=== PATIENT | male | born 1980 | race African-American/Black ===

== ENCOUNTER 2018-04-21 10:00 | Inpatient (IN) | payer MEDICAID ==
[~2018-04-21] VITALS: Ht 177.8 cm; Wt 114.3 kg
[2018-04-21] MEDS ORDERED: HALOPERIDOL 5 MG TABLET PO ONE (11:45)
[2018-04-21] MEDS ORDERED: LORazepam 2 MG TABLET PO ONE (11:45)
[2018-04-21 11:51] LABS: BASOPHILS % (AUTO) 0.9 % (0.0-2.0); EOSINOPHILS % (AUTO) 0.7 % (1.0-6.0); HEMATOCRIT 46.9 % (41-53); HEMOGLOBIN 16.3 g/dL (13.5-17.5); LYMPHOCYTES # (AUTO) 1.8 K/uL (1.0-4.8); LYMPHOCYTES % (AUTO) 15.3 % (22.0-44.0); MEAN CORPUSCULAR HEMOGLOBIN 30.2 pg (26.0-34.0); MEAN CORPUSCULAR HGB CONC 34.8 G/dL (31.0-37.0); MEAN CORPUSCULAR VOLUME 87 fL (80-100); MONOCYTES % (AUTO) 8.4 % (2.0-9.0); NEUTROPHILS # (AUTO) 8.7 K/uL (1.8-7.7); NEUTROPHILS % (AUTO) 74.7 % (40.0-70.0); PLATELET COUNT (AUTO) 520 K/uL (150-450); RED CELL DISTRIBUTION WIDTH 14.3 % (11.5-14.5)
[2018-04-21] MEDS ORDERED: HALOPERIDOL 5 MG TABLET PO PRN (12:00)
[2018-04-21 12:08] LABS: ANION GAP 13 mmol/L (8-16); CALCIUM, TOTAL 9.7 mg/dL (8.8-10.5); CARBON DIOXIDE 27 mmol/L (22-29); CHLORIDE 99 mmol/L (98-107); GLOMERULAR FILTR. RATE CALC > 60 mL/min (>60); GLUCOSE,RANDOM 123 mg/dL (70-110); POTASSIUM 3.9 mmol/L (3.5-5.1); SODIUM SERUM 139 mmol/L (136-145); UREA NITROGEN, BLOOD 6 mg/dL (7-18)
[2018-04-21 12:12] LABS: ALANINE AMINOTRANSFERASE 70 U/L (12-78); ALBUMIN 4.8 g/dL (3.4-5.0); ALKALINE PHOSPHATASE 104 U/L (46-116); ASPARTATE AMINOTRANSFERASE 75 U/L (15-37); BILIRUBIN,TOTAL 0.7 mg/dL (0.1-1.0); TOTAL PROTEIN, SERUM 8.6 g/dL (6.4-8.2)
[2018-04-21 13:33] LABS: AMPHET/METH SCREEN,URINE NEGATIVE (NEGATIVE); BARBITURATE SCREEN, URINE NEGATIVE (NEGATIVE); BENZODIAZEPINES SCREEN,URINE NEGATIVE (NEGATIVE); CANNABINOID SCREEN,URINE POSITIVE (NEGATIVE); COCAINE SCREEN,URINE NEGATIVE (NEGATIVE); METHADONE SCREEN, URINE NEGATIVE (NEGATIVE); OPIATE SCREEN,URINE NEGATIVE (NEGATIVE)
[2018-04-21 13:40] LABS: PHENCYCLIDINE SCREEN,URINE NEGATIVE (NEGATIVE)
[2018-04-21 16:18] VITALS: BP 114/71
[2018-04-21] MEDS ORDERED: ACETAMINOPHEN 325 MG TABLET PO PRN (16:30)
[2018-04-21] MEDS ORDERED: CloNIDine HCL 0.1 MG TABLET PO PRN (16:30)
[2018-04-21] MEDS ORDERED: ALBUTEROL SULFATE HFA 90 MCG/PUFF 8 GM INHALER IH PRN (16:30)
[2018-04-21] MEDS ORDERED: PETROLATUM,WHITE 71 GM JELLY TP PRN (16:30)
[2018-04-21] MEDS ORDERED: GuaiFENesin/D-METHORPHAN [SUGAR-FREE] 200-20MG/10 ML SYRUP UDCUP PO PRN (16:30)
[2018-04-21] MEDS ORDERED: NICOTINE 14 MG/24 HOUR PATCH TD PRN (16:30)
[2018-04-21] MEDS ORDERED: MAGNESIUM HYDROXIDE SUSPENSION 30 ML UDCUP PO PRN (16:30)
[2018-04-21] MEDS ORDERED: MAG HYDROX/AL HYDROX/SIMETH ES 30 ML SUSPENSION UDCUP PO PRN (16:30)
[2018-04-21] MEDS ORDERED: DOCUSATE SODIUM 100 MG CAPSULE PO PRN (16:30)
[2018-04-21] MEDS ORDERED: LOPERAMIDE HCL 2 MG CAPSULE PO PRN (16:30)
[2018-04-21] MEDS ORDERED: ONDANSETRON HCL 4 MG TABLET PO PRN (16:30)
[2018-04-21] MEDS ORDERED: HALOPERIDOL LACTATE 5 MG/ML VIAL IM ONE (21:00)
[2018-04-21] MEDS ORDERED: LORazepam 2 MG/ML VIAL IM ONE (21:00)
[2018-04-21] MEDS ORDERED: DiphenhydrAMINE HCL 50 MG/ML VIAL IM ONE (21:00)
[2018-04-22 04:09] VITALS: BP 132/67
[2018-04-22 08:47] LABS: BASOPHILS % (AUTO) 0.6 % (0.0-2.0); EOSINOPHILS % (AUTO) 5.3 % (1.0-6.0); HEMATOCRIT 45.3 % (41-53); HEMOGLOBIN 15.6 g/dL (13.5-17.5); LYMPHOCYTES # (AUTO) 2.2 K/uL (1.0-4.8); LYMPHOCYTES % (AUTO) 28.3 % (22.0-44.0); MEAN CORPUSCULAR HEMOGLOBIN 29.8 pg (26.0-34.0); MEAN CORPUSCULAR HGB CONC 34.3 G/dL (31.0-37.0); MEAN CORPUSCULAR VOLUME 87 fL (80-100); MONOCYTES # (AUTO) 0.8 K/uL (0.1-1.0); MONOCYTES % (AUTO) 9.9 % (2.0-9.0); NEUTROPHILS # (AUTO) 4.4 K/uL (1.8-7.7); NEUTROPHILS % (AUTO) 55.9 % (40.0-70.0); PLATELET COUNT (AUTO) 431 K/uL (150-450); RED BLOOD CELL COUNT(AUTO) 5.23 MIL/uL (4.50-5.90); RED CELL DISTRIBUTION WIDTH 14.6 % (11.5-14.5)
[2018-04-22 09:04] LABS: HEMOGLOBIN A1C 5.7 % (4.5-6.2)
[2018-04-22 09:12] VITALS: BP 103/67
[2018-04-22 09:32] LABS: ALANINE AMINOTRANSFERASE 70 U/L (12-78); ALBUMIN 4.4 g/dL (3.4-5.0); ALKALINE PHOSPHATASE 96 U/L (46-116); ANION GAP 6 mmol/L (8-16); ASPARTATE AMINOTRANSFERASE 58 U/L (15-37); BILIRUBIN,TOTAL 0.6 mg/dL (0.1-1.0); CALCIUM, TOTAL 9.1 mg/dL (8.8-10.5); CARBON DIOXIDE 31 mmol/L (22-29); CHLORIDE 101 mmol/L (98-107); CHOL/HDL RATIO 6.1 (4.2-7.3); CHOLESTEROL 146 mg/dL (131-200); CREATININE 1.17 mg/dL (0.60-1.30); GLOMERULAR FILTR. RATE CALC > 60 mL/min (>60); GLUCOSE,RANDOM 97 mg/dL (70-110); HDL CHOLESTEROL 24 mg/dL (40-60); LDL CHOL (CALC.) 107 mg/dL (0-130); POTASSIUM 4.8 mmol/L (3.5-5.1); SODIUM SERUM 138 mmol/L (136-145); TOTAL PROTEIN, SERUM 7.5 g/dL (6.4-8.2); TRIGLYCERIDES 75 mg/dL (15-150); UREA NITROGEN, BLOOD 9 mg/dL (7-18)
[2018-04-22] MEDS: RisperiDONE 1 MG TABLET PO SCH ×2 (10:45→20:47)
[2018-04-22 17:24] VITALS: BP 113/60
[2018-04-22] MEDS: IBUPROFEN 400 MG TABLET PO PRN (20:48)
[2018-04-23 04:08] VITALS: BP 116/72
[2018-04-23] MEDS: IBUPROFEN 400 MG TABLET PO PRN ×2 (07:08→17:57)
[2018-04-23 08:16] VITALS: BP 112/68
[2018-04-23] MEDS: RisperiDONE 1 MG TABLET PO SCH ×2 (08:53→20:08)
[2018-04-23 17:06] VITALS: BP 124/67
[2018-04-24 06:17] VITALS: BP 101/61
[2018-04-24] MEDS: RisperiDONE 1 MG TABLET PO SCH ×2 (08:07→21:07)
[2018-04-24 08:16] VITALS: BP 124/69
[2018-04-24 16:00] VITALS: BP 134/68
[2018-04-24] MEDS: LORazepam 2 MG TABLET PO PRN (16:17)
[2018-04-24] MEDS: ZOLPIDEM TARTRATE 10 MG TABLET PO PRN (21:20)
[2018-04-25 05:24] VITALS: BP 125/76
[2018-04-25 08:24] VITALS: BP 130/80
[2018-04-25] MEDS: RisperiDONE 1 MG TABLET PO SCH ×2 (08:41→20:18)
[2018-04-25 16:00] VITALS: BP 138/85
[2018-04-25] MEDS: LORazepam 2 MG TABLET PO PRN (16:32)
[2018-04-26 06:34] VITALS: BP 128/83
[2018-04-26 08:17] VITALS: BP 126/82
[2018-04-26] MEDS: RisperiDONE 1 MG TABLET PO SCH ×2 (08:39→20:42)
[2018-04-26] MEDS: LORazepam 2 MG TABLET PO PRN ×2 (08:39→16:26)
[2018-04-26 16:00] VITALS: BP 119/70
[2018-04-26] MEDS: ZOLPIDEM TARTRATE 10 MG TABLET PO PRN (20:42)
[2018-04-27 00:13] VITALS: BP 120/76
[2018-04-27 08:17] VITALS: BP 116/65
[2018-04-27] MEDS: RisperiDONE 1 MG TABLET PO SCH ×2 (09:00→20:47)
[2018-04-27 16:00] VITALS: BP 131/74
[2018-04-27] MEDS: LORazepam 2 MG TABLET PO PRN (16:43)
[2018-04-27] MEDS: ZOLPIDEM TARTRATE 10 MG TABLET PO PRN (20:47)
[2018-04-28 03:14] VITALS: BP 124/80
[2018-04-28 08:10] VITALS: BP 120/79
[2018-04-28] MEDS: RisperiDONE 1 MG TABLET PO SCH ×2 (09:44→20:30)
[2018-04-28 16:00] VITALS: BP 127/87
[2018-04-28] MEDS: LORazepam 2 MG TABLET PO PRN (16:16)
[2018-04-28] MEDS: ZOLPIDEM TARTRATE 10 MG TABLET PO PRN (20:45)
[2018-04-29 03:50] VITALS: BP 123/82
[2018-04-29] MEDS: LORazepam 2 MG TABLET PO PRN (03:52)
[2018-04-29 08:13] VITALS: BP 131/65
[2018-04-29] MEDS: RisperiDONE 1 MG TABLET PO SCH ×2 (08:39→20:48)
[2018-04-29 16:03] VITALS: BP 130/69
[2018-04-29] MEDS: ZOLPIDEM TARTRATE 10 MG TABLET PO PRN (20:48)
[2018-04-30 00:27] VITALS: BP 141/85
[2018-04-30] MEDS: IBUPROFEN 400 MG TABLET PO PRN ×2 (00:56→20:34)
[2018-04-30] MEDS: LORazepam 2 MG TABLET PO PRN ×2 (00:57→17:30)
[2018-04-30] MEDS: RisperiDONE 1 MG TABLET PO SCH ×2 (08:42→20:34)
[2018-04-30 08:55] VITALS: BP 133/61
[2018-04-30 16:45] VITALS: BP 139/78
[2018-04-30 20:34] VITALS: BP 132/76
[2018-04-30] MEDS: ZOLPIDEM TARTRATE 10 MG TABLET PO PRN (20:38)
[2018-05-01 05:22] VITALS: BP 129/71
[2018-05-01] MEDS: RisperiDONE 1 MG TABLET PO SCH (08:19)
[2018-05-01] MEDS ORDERED: RISP1 PO (08:31)
[2018-05-01 08:47] VITALS: BP 122/73
[2018-05-01] MEDS: IBUPROFEN 400 MG TABLET PO PRN (12:18)
== END 2018-05-01 13:35 | disposition home or self-care (01) | DRG 750 ==
LOC: EMS 10:01 → B3A 12:31 → B2S 04-30 09:36
PROVIDERS: ADMIT Psychiatry & Neurology Psychiatry; ATTEND Psychiatry & Neurology Psychiatry
DX: F20.0 Paranoid schizophrenia (principal); F15.20 Other stimulant dependence, uncomplicated; D72.829 Elevated white blood cell count, unspecified; F17.210 Nicotine dependence, cigarettes, uncomplicated; F41.9 Anxiety disorder, unspecified; F12.90 Cannabis use, unspecified, uncomplicated; Z91.5 Personal history of self-harm
CPT/HCPCS: 80074; 83036; 84443; G0480; J1200; J1630; J2060

== ENCOUNTER 2018-10-04 13:52 | Inpatient (IN) | payer MEDICAID ==
[~2018-10-04] VITALS: Ht 172.7 cm; Wt 113.1 kg
[2018-10-04 13:50] VITALS: BP 124/70
[~2018-10-04 13:52] MED LIST: RISP1 PO
[2018-10-04] MEDS ORDERED: ZOLPIDEM TARTRATE 10 MG TABLET PO PRN (14:30)
[2018-10-04 16:08] LABS: ANION GAP 7 mmol/L (8-16); CALCIUM, TOTAL 9.1 mg/dL (8.8-10.5); CARBON DIOXIDE 28 mmol/L (22-29); CHLORIDE 101 mmol/L (98-107); CREATININE 1.28 mg/dL (0.60-1.30); GLOMERULAR FILTR. RATE CALC > 60 mL/min (>60); GLUCOSE,RANDOM 104 mg/dL (70-110); POTASSIUM 4.1 mmol/L (3.5-5.1); SODIUM SERUM 136 mmol/L (136-145); UREA NITROGEN, BLOOD 13 mg/dL (7-18)
[2018-10-04 16:11] LABS: BASOPHILS % (AUTO) 0.5 % (0.0-2.0); EOSINOPHILS % (AUTO) 2.3 % (1.0-6.0); HEMATOCRIT 47.7 % (41-53); HEMOGLOBIN 15.9 g/dL (13.5-17.5); LYMPHOCYTES # (AUTO) 1.3 K/uL (1.0-4.8); LYMPHOCYTES % (AUTO) 17.1 % (22.0-44.0); MEAN CORPUSCULAR HEMOGLOBIN 28.8 pg (26.0-34.0); MEAN CORPUSCULAR HGB CONC 33.3 G/dL (31.0-37.0); MEAN CORPUSCULAR VOLUME 87 fL (80-100); MONOCYTES # (AUTO) 0.7 K/uL (0.1-1.0); MONOCYTES % (AUTO) 8.6 % (2.0-9.0); NEUTROPHILS # (AUTO) 5.6 K/uL (1.8-7.7); NEUTROPHILS % (AUTO) 71.5 % (40.0-70.0); PLATELET COUNT (AUTO) 363 K/uL (150-450); RED BLOOD CELL COUNT(AUTO) 5.52 MIL/uL (4.50-5.90); RED CELL DISTRIBUTION WIDTH 14.8 % (11.5-14.5)
[2018-10-04] MEDS ORDERED: DiphenhydrAMINE HCL 50 MG/ML VIAL IM ONE (16:15)
[2018-10-04] MEDS ORDERED: LORazepam 2 MG/ML VIAL IM ONE (16:15)
[2018-10-04 16:23] LABS: ALANINE AMINOTRANSFERASE 37 U/L (12-78); ALBUMIN 3.9 g/dL (3.4-5.0); ALKALINE PHOSPHATASE 100 U/L (46-116); ASPARTATE AMINOTRANSFERASE 15 U/L (15-37); BILIRUBIN,TOTAL 0.3 mg/dL (0.1-1.0); FREE T4 (FREE THYROXINE) 1.41 ng/dL (0.76-1.46); THYROID STIMULATING HORMONE 1.68 uIU/mL (0.36-3.74); TOTAL PROTEIN, SERUM 7.2 g/dL (6.4-8.2)
[2018-10-04 18:12] LABS: APPEARANCE,URINE CLEAR (CLEAR); BILIRUBIN,URINE NEGATIVE (NEGATIVE); GLUCOSE, URINE (UA) NEGATIVE (NEGATIVE); KETONES,URINE 40 mg/dL (NEGATIVE); LEUKOCYTE ESTERASE ,URINE NEGATIVE (NEGATIVE); NITRATE,URINE NEGATIVE (NEGATIVE); OCCULT BLOOD,URINE NEGATIVE (NEGATIVE); PROTEIN,URINE NEGATIVE (NEGATIVE); UROBILINOGEN,URINE 0.2 mg/dL (<=1.0)
[2018-10-04 18:20] LABS: AMPHET/METH SCREEN,URINE NEGATIVE (NEGATIVE); BARBITURATE SCREEN, URINE NEGATIVE (NEGATIVE); BENZODIAZEPINES SCREEN,URINE NEGATIVE (NEGATIVE); CANNABINOID SCREEN,URINE NEGATIVE (NEGATIVE); COCAINE SCREEN,URINE NEGATIVE (NEGATIVE); METHADONE SCREEN, URINE NEGATIVE (NEGATIVE); OPIATE SCREEN,URINE NEGATIVE (NEGATIVE)
[2018-10-04 18:21] LABS: PHENCYCLIDINE SCREEN,URINE NEGATIVE (NEGATIVE)
[2018-10-04 21:30] VITALS: BP 120/64
[2018-10-04] MEDS ORDERED: IBUPROFEN 400 MG TABLET PO PRN (22:00)
[2018-10-04] MEDS ORDERED: MAGNESIUM HYDROXIDE SUSPENSION 30 ML UDCUP PO PRN (22:00)
[2018-10-04] MEDS ORDERED: ALBUTEROL SULFATE HFA 90 MCG/PUFF 8 GM INHALER IH PRN (22:00)
[2018-10-04] MEDS ORDERED: MAG HYDROX/AL HYDROX/SIMETH ES 30 ML SUSPENSION UDCUP PO PRN (22:00)
[2018-10-04] MEDS ORDERED: NICOTINE 14 MG/24 HOUR PATCH TD PRN (22:00)
[2018-10-04] MEDS ORDERED: GuaiFENesin/D-METHORPHAN [SUGAR-FREE] 200-20MG/10 ML SYRUP UDCUP PO PRN (22:00)
[2018-10-04] MEDS ORDERED: ONDANSETRON HCL 4 MG TABLET PO PRN (22:00)
[2018-10-04] MEDS ORDERED: CloNIDine HCL 0.1 MG TABLET PO PRN (22:00)
[2018-10-04] MEDS ORDERED: ACETAMINOPHEN 325 MG TABLET PO PRN (22:00)
[2018-10-04] MEDS ORDERED: LOPERAMIDE HCL 2 MG CAPSULE PO PRN (22:00)
[2018-10-04] MEDS ORDERED: DOCUSATE SODIUM 100 MG CAPSULE PO PRN (22:00)
[2018-10-05 08:01] VITALS: BP 137/67
[2018-10-05 16:10] VITALS: BP 130/71
[2018-10-05] MEDS: ARIPiprazole 5 MG TABLET PO SCH (17:42)
[2018-10-05] MEDS: HALOPERIDOL 5 MG TABLET PO PRN (17:42)
[2018-10-05] MEDS: LORazepam 2 MG TABLET PO PRN (17:42)
[2018-10-06 06:17] VITALS: BP 143/71
[2018-10-06] MEDS: ARIPiprazole 5 MG TABLET PO SCH (08:34)
[2018-10-06 08:37] VITALS: BP 112/65
[2018-10-06 16:00] VITALS: BP 118/70
[2018-10-06] MEDS: HALOPERIDOL 5 MG TABLET PO PRN (17:39)
[2018-10-06] MEDS: LORazepam 2 MG TABLET PO PRN (17:39)
[2018-10-07 06:55] VITALS: BP 125/82
[2018-10-07 08:08] VITALS: BP 123/61
[2018-10-07] MEDS: ARIPiprazole 5 MG TABLET PO SCH (09:00)
[2018-10-07] MEDS ORDERED: ARIP5TAB8 PO (13:15)
== END 2018-10-07 13:10 | disposition home or self-care (01) | DRG 750 ==
LOC: EDSTATUS 13:52 → EMS 14:39 → B3A 21:17
DX: F20.1 Disorganized schizophrenia (principal); Z59.0 Homelessness; F19.10 Other psychoactive substance abuse, uncomplicated; Z91.19 Patient's noncompliance with other medical treatment and regimen; G44.209 Tension-type headache, unspecified, not intractable; Z79.899 Other long term (current) drug therapy
CPT/HCPCS: 84439; 84443; 96372; G0480; J1200; J2060

== ENCOUNTER 2021-06-30 11:07 | Inpatient (IN) | payer MEDICAID ==
[~2021-06-30] VITALS: Ht 170.2 cm; Wt 107.1 kg
[~2021-06-30 11:07] MED LIST changes: +ARIP5TAB37 PO; -RISP1 PO
[2021-06-30] MEDS ORDERED: GuaiFENesin/D-METHORPHAN [SUGAR-FREE] 200-20MG/10 ML SYRUP UDCUP PO PRN (13:45)
[2021-06-30] MEDS ORDERED: LOPERAMIDE HCL 2 MG CAPSULE PO PRN (13:45)
[2021-06-30] MEDS ORDERED: TUBERCULIN, PURIFIED PROTEIN DERIVATIVE 5 TU/0.1 ML SYRINGE ID ONE (13:45)
[2021-06-30] MEDS ORDERED: OLANZapine 5 MG RAPDIS TABLET PO PRN (13:45)
[2021-06-30] MEDS ORDERED: HydrOXYzine PAMOATE 50 MG CAPSULE PO PRN (13:45)
[2021-06-30] MEDS ORDERED: LORazepam 2 MG TABLET PO PRN (13:45)
[2021-06-30 16:05] LABS: AMPHET/METH SCREEN,URINE NEGATIVE (NEGATIVE); BARBITURATE SCREEN, URINE NEGATIVE (NEGATIVE); BENZODIAZEPINES SCREEN,URINE NEGATIVE (NEGATIVE); CANNABINOID SCREEN,URINE NEGATIVE (NEGATIVE); COCAINE SCREEN,URINE NEGATIVE (NEGATIVE); METHADONE SCREEN, URINE NEGATIVE (NEGATIVE); OPIATE SCREEN,URINE NEGATIVE (NEGATIVE)
[2021-06-30 16:06] LABS: PHENCYCLIDINE SCREEN,URINE NEGATIVE (NEGATIVE)
[2021-06-30 16:06] LABS: BASOPHILS % (AUTO) 0.7 % (0.0-2.0); EOSINOPHILS % (AUTO) 0.5 % (1.0-6.0); HEMATOCRIT 47.1 % (41-53); HEMOGLOBIN 16.2 g/dL (13.5-17.5); LYMPHOCYTES # (AUTO) 1.6 K/uL (1.0-4.8); LYMPHOCYTES % (AUTO) 14.9 % (22.0-44.0); MEAN CORPUSCULAR HEMOGLOBIN 28.6 pg (26.0-34.0); MEAN CORPUSCULAR HGB CONC 34.5 G/dL (31.0-37.0); MEAN CORPUSCULAR VOLUME 83 fL (80-100); MONOCYTES # (AUTO) 0.8 K/uL (0.1-1.0); MONOCYTES % (AUTO) 7.9 % (2.0-9.0); PLATELET COUNT (AUTO) 558 K/uL (150-450); RED BLOOD CELL COUNT(AUTO) 5.69 MIL/uL (4.50-5.90); RED CELL DISTRIBUTION WIDTH 14.6 % (11.5-14.5)
[2021-06-30 16:13] LABS: ANION GAP 12 mmol/L (8-16); CALCIUM, TOTAL 8.8 mg/dL (8.8-10.5); CARBON DIOXIDE 25 mmol/L (22-29); CHLORIDE 100 mmol/L (98-107); GLUCOSE,RANDOM 116 mg/dL (70-110); POTASSIUM 4.2 mmol/L (3.5-5.1); SODIUM SERUM 137 mmol/L (136-145); UREA NITROGEN, BLOOD 15 mg/dL (7-18)
[2021-06-30 16:15] LABS: GLOMERULAR FILTR. RATE CALC > 60 mL/min (>60)
[2021-06-30 16:16] LABS: COVID AG,FIA SOURCE NASAL SWAB
[2021-06-30 16:18] LABS: ALANINE AMINOTRANSFERASE 37 U/L (12-78); ALBUMIN 4.5 g/dL (3.4-5.0); ALKALINE PHOSPHATASE 105 U/L (46-116); ASPARTATE AMINOTRANSFERASE 15 U/L (15-37); BILIRUBIN,TOTAL 0.5 mg/dL (0.1-1.0); TOTAL PROTEIN, SERUM 8.4 g/dL (6.4-8.2)
[2021-06-30] MEDS: TRIHEXYPHENIDYL HCL 2 MG TABLET PO SCH (16:37)
[2021-06-30] MEDS: THIAMINE 100 MG TABLET PO SCH (17:32)
[2021-06-30 19:10] VITALS: BP 148/76
[2021-06-30] MEDS: MELATONIN 5 MG TABLET PO SCH (21:00)
[2021-06-30] MEDS ORDERED: OLANZapine 5 MG RAPDIS TABLET PO SCH (21:00)
[2021-07-01 04:37] VITALS: BP 142/88
[2021-07-01 08:00] VITALS: BP 136/80
[2021-07-01] MEDS ORDERED: PALIPERIDONE PALMITATE 234 MG/1.5 ML SYRINGE IM ONE (09:00)
[2021-07-01] MEDS: TRIHEXYPHENIDYL HCL 2 MG TABLET PO SCH ×3 (09:00→17:00)
[2021-07-01] MEDS ORDERED: PALIPERIDONE PALMITATE 156 MG/ML SYRINGE IM ONE (09:00)
[2021-07-01] MEDS: OMEGA-3/DHA/EPA/FISH OIL 1,000 MG CAPSULE PO SCH (10:00)
[2021-07-01] MEDS: THIAMINE 100 MG TABLET PO SCH ×2 (10:00→17:00)
[2021-07-01] MEDS: MULTIVITAMINS WITH MINERALS, THERAPEUTIC TABLET PO SCH (10:00)
[2021-07-01] MEDS: NALTREXONE HCL 50 MG TABLET PO SCH (10:00)
[2021-07-01] MEDS: FOLIC ACID 1 MG TABLET PO SCH (10:00)
[2021-07-01] MEDS ORDERED: LURASIDONE HCL 20 MG TABLET PO PRN (14:00)
[2021-07-01 16:07] VITALS: BP 123/73
[2021-07-01] MEDS: LURASIDONE HCL 40 MG TABLET PO SCH (17:00)
[2021-07-01] MEDS: MELATONIN 5 MG TABLET PO SCH (20:26)
[2021-07-02 03:29] VITALS: BP 134/78
[2021-07-02 08:03] VITALS: BP 122/68
[2021-07-02] MEDS: MULTIVITAMINS WITH MINERALS, THERAPEUTIC TABLET PO SCH (09:00)
[2021-07-02] MEDS: TRIHEXYPHENIDYL HCL 2 MG TABLET PO SCH ×3 (09:00→16:30)
[2021-07-02] MEDS: NALTREXONE HCL 50 MG TABLET PO SCH (09:00)
[2021-07-02] MEDS: THIAMINE 100 MG TABLET PO SCH ×2 (09:00→16:30)
[2021-07-02] MEDS: OMEGA-3/DHA/EPA/FISH OIL 1,000 MG CAPSULE PO SCH (09:00)
[2021-07-02] MEDS: FOLIC ACID 1 MG TABLET PO SCH (09:00)
[2021-07-02 16:04] VITALS: BP 138/79
[2021-07-02] MEDS: LURASIDONE HCL 40 MG TABLET PO SCH (16:30)
[2021-07-02] MEDS: MELATONIN 5 MG TABLET PO SCH (20:49)
[2021-07-03 01:53] VITALS: BP 132/72
[2021-07-03 08:16] VITALS: BP 110/63
[2021-07-03] MEDS: TRIHEXYPHENIDYL HCL 2 MG TABLET PO SCH ×3 (08:55→16:52)
[2021-07-03] MEDS: NALTREXONE HCL 50 MG TABLET PO SCH (08:55)
[2021-07-03] MEDS: THIAMINE 100 MG TABLET PO SCH ×2 (08:55→16:52)
[2021-07-03] MEDS: MULTIVITAMINS WITH MINERALS, THERAPEUTIC TABLET PO SCH (08:55)
[2021-07-03] MEDS: FOLIC ACID 1 MG TABLET PO SCH (08:55)
[2021-07-03] MEDS: OMEGA-3/DHA/EPA/FISH OIL 1,000 MG CAPSULE PO SCH (08:55)
[2021-07-03] MEDS ORDERED: LORazepam 2 MG TABLET PO PRN (13:30)
[2021-07-03] MEDS ORDERED: HALOPERIDOL LACTATE 5 MG/ML VIAL IM ONE (14:30)
[2021-07-03] MEDS ORDERED: DiphenhydrAMINE HCL 50 MG/ML VIAL IM ONE (14:30)
[2021-07-03] MEDS ORDERED: LORazepam 2 MG/ML VIAL IM ONE (14:30)
[2021-07-03 16:10] VITALS: BP 129/90
[2021-07-03] MEDS: LORazepam 0.5 MG TABLET PO SCH ×2 (16:52→20:53)
[2021-07-03] MEDS: LURASIDONE HCL 40 MG TABLET PO SCH (16:52)
[2021-07-03] MEDS: MELATONIN 5 MG TABLET PO SCH (20:54)
[2021-07-04 05:07] VITALS: BP 132/72
[2021-07-04 08:10] VITALS: BP 145/82
[2021-07-04] MEDS: THIAMINE 100 MG TABLET PO SCH ×2 (08:16→16:34)
[2021-07-04] MEDS: TRIHEXYPHENIDYL HCL 2 MG TABLET PO SCH ×3 (08:16→16:33)
[2021-07-04] MEDS: NALTREXONE HCL 50 MG TABLET PO SCH (08:16)
[2021-07-04] MEDS: MULTIVITAMINS WITH MINERALS, THERAPEUTIC TABLET PO SCH (08:16)
[2021-07-04] MEDS: FOLIC ACID 1 MG TABLET PO SCH (08:16)
[2021-07-04] MEDS: LORazepam 0.5 MG TABLET PO SCH ×4 (08:16→21:00)
[2021-07-04] MEDS: OMEGA-3/DHA/EPA/FISH OIL 1,000 MG CAPSULE PO SCH (08:16)
[2021-07-04] MEDS ORDERED: PALIPERIDONE PALMITATE 234 MG/1.5 ML SYRINGE IM ONE (09:00)
[2021-07-04 09:12] LABS: HEMOGLOBIN A1C 5.5 % (3.8-5.6)
[2021-07-04 09:21] LABS: FREE T4 (FREE THYROXINE) 1.58 ng/dL (0.76-1.46); THYROID STIMULATING HORMONE 1.4 uIU/mL (0.36-3.74)
[2021-07-04 16:06] VITALS: BP 140/82
[2021-07-04] MEDS: MELATONIN 5 MG TABLET PO SCH (21:00)
[2021-07-05 01:37] VITALS: BP 135/78
[2021-07-05 08:29] VITALS: BP 141/90
[2021-07-05] MEDS: NALTREXONE HCL 50 MG TABLET PO SCH (08:41)
[2021-07-05] MEDS: THIAMINE 100 MG TABLET PO SCH ×2 (08:41→16:42)
[2021-07-05] MEDS: FOLIC ACID 1 MG TABLET PO SCH (08:41)
[2021-07-05] MEDS: TRIHEXYPHENIDYL HCL 2 MG TABLET PO SCH ×3 (08:41→16:42)
[2021-07-05] MEDS: MULTIVITAMINS WITH MINERALS, THERAPEUTIC TABLET PO SCH (08:41)
[2021-07-05] MEDS: OMEGA-3/DHA/EPA/FISH OIL 1,000 MG CAPSULE PO SCH (08:41)
[2021-07-05] MEDS: LORazepam 0.5 MG TABLET PO SCH ×4 (08:42→20:20)
[2021-07-05 16:05] VITALS: BP 119/80
[2021-07-05] MEDS: MELATONIN 5 MG TABLET PO SCH (20:19)
[2021-07-05] MEDS: ZOLPIDEM TARTRATE 10 MG TABLET PO PRN (20:20)
[2021-07-06 05:06] VITALS: BP 117/78
[2021-07-06 08:03] VITALS: BP 124/66
[2021-07-06] MEDS: MULTIVITAMINS WITH MINERALS, THERAPEUTIC TABLET PO SCH (08:14)
[2021-07-06] MEDS: TRIHEXYPHENIDYL HCL 2 MG TABLET PO SCH ×3 (08:14→16:55)
[2021-07-06] MEDS: NALTREXONE HCL 50 MG TABLET PO SCH (08:14)
[2021-07-06] MEDS: THIAMINE 100 MG TABLET PO SCH ×2 (08:14→16:55)
[2021-07-06] MEDS: OMEGA-3/DHA/EPA/FISH OIL 1,000 MG CAPSULE PO SCH (08:14)
[2021-07-06] MEDS: FOLIC ACID 1 MG TABLET PO SCH (08:15)
[2021-07-06] MEDS: LORazepam 0.5 MG TABLET PO SCH ×4 (08:15→20:23)
[2021-07-06 16:29] VITALS: BP 120/68
[2021-07-06] MEDS ORDERED: ACETAMINOPHEN 325 MG TABLET PO PRN (18:00)
[2021-07-06] MEDS: MELATONIN 5 MG TABLET PO SCH (20:24)
[2021-07-06] MEDS: ZOLPIDEM TARTRATE 10 MG TABLET PO PRN (20:24)
[2021-07-07 04:28] VITALS: BP 117/74
[2021-07-07] MEDS: THIAMINE 100 MG TABLET PO SCH ×2 (08:19→16:15)
[2021-07-07] MEDS: FOLIC ACID 1 MG TABLET PO SCH (08:19)
[2021-07-07] MEDS: OMEGA-3/DHA/EPA/FISH OIL 1,000 MG CAPSULE PO SCH (08:19)
[2021-07-07] MEDS: NALTREXONE HCL 50 MG TABLET PO SCH (08:19)
[2021-07-07] MEDS: MULTIVITAMINS WITH MINERALS, THERAPEUTIC TABLET PO SCH (08:19)
[2021-07-07] MEDS: LORazepam 0.5 MG TABLET PO SCH ×5 (08:19→20:11)
[2021-07-07] MEDS: TRIHEXYPHENIDYL HCL 2 MG TABLET PO SCH ×3 (08:19→16:15)
[2021-07-07 10:12] VITALS: BP 118/74
[2021-07-07] MEDS ORDERED: LORA-999 PO (15:20)
[2021-07-07] MEDS ORDERED: TRIH2TAB3 PO (15:20)
[2021-07-07] MEDS ORDERED: MELA5TAB40 PO (15:20)
[2021-07-07] MEDS ORDERED: OMEG-135 PO (15:20)
[2021-07-07] MEDS ORDERED: NALT50TA PO (15:20)
[2021-07-07] MEDS ORDERED: PALI117D IM (15:20)
[2021-07-07 16:08] VITALS: BP 110/69
[2021-07-07] MEDS: ZOLPIDEM TARTRATE 10 MG TABLET PO PRN (20:11)
[2021-07-07] MEDS: MELATONIN 5 MG TABLET PO SCH (20:11)
[2021-07-08 04:25] VITALS: BP 126/68
[2021-07-08 08:00] VITALS: BP 118/70
[2021-07-08] MEDS: MULTIVITAMINS WITH MINERALS, THERAPEUTIC TABLET PO SCH (08:51)
[2021-07-08] MEDS: OMEGA-3/DHA/EPA/FISH OIL 1,000 MG CAPSULE PO SCH (08:51)
[2021-07-08] MEDS: TRIHEXYPHENIDYL HCL 2 MG TABLET PO SCH ×2 (08:51→13:00)
[2021-07-08] MEDS: LORazepam 0.5 MG TABLET PO SCH ×2 (08:51→13:00)
[2021-07-08] MEDS: THIAMINE 100 MG TABLET PO SCH (08:51)
[2021-07-08] MEDS: FOLIC ACID 1 MG TABLET PO SCH (08:51)
[2021-07-08] MEDS: NALTREXONE HCL 50 MG TABLET PO SCH (08:51)
[2021-07-08] MEDS ORDERED: PALIPERIDONE PALMITATE 156 MG/ML SYRINGE IM ONE (09:00)
[2021-07-08] MEDS ORDERED: LORA-999 PO (09:00)
[2021-07-08] MEDS ORDERED: NALT50TA PO (10:04)
[2021-07-08] MEDS ORDERED: PALI117D IM ×2 (10:04→12:06)
[2021-07-08] MEDS ORDERED: TRIH2TAB3 PO ×2 (10:04→12:07)
[2021-07-08] MEDS ORDERED: OMEG-135 PO (10:04)
[2021-07-08] MEDS ORDERED: MELA5TAB40 PO (10:04)
[2021-07-08] MEDS ORDERED: NALT50TA6 PO (12:07)
[2021-07-08] MEDS ORDERED: MELA5TAB21 PO (12:07)
[2021-07-08] MEDS ORDERED: OMEG-48 PO (12:08)
== END 2021-07-08 14:47 | disposition home or self-care (01) | DRG 750 ==
LOC: EMS 11:10 → B3A 16:54
PROVIDERS: ADMIT Psychiatry & Neurology Psychiatry; ATTEND Psychiatry & Neurology Psychiatry
DX: F25.0 Schizoaffective disorder, bipolar type (principal); Z59.00 Homelessness unspecified; F06.30 Mood disorder due to known physiological condition, unspecified; F41.9 Anxiety disorder, unspecified; G47.00 Insomnia, unspecified; R41.843 Psychomotor deficit; Z20.822 Contact with and (suspected) exposure to COVID-19; F17.200 Nicotine dependence, unspecified, uncomplicated; F12.10 Cannabis abuse, uncomplicated; Z55.9 Problems related to education and literacy, unspecified; Z59.9 Problem related to housing and economic circumstances, unspecified; Z63.9 Problem related to primary support group, unspecified; Z65.3 Problems related to other legal circumstances; Z91.14 Patient's other noncompliance with medication regimen; Z91.19 Patient's noncompliance with other medical treatment and regimen
CPT/HCPCS: 80053; 80061; 83036; 84439; 84443; 85025; 86592; 99285; G0480; J1200; J1630; J2060; Q9967

== ENCOUNTER 2022-12-18 18:57 | Inpatient (IN) | payer MEDICAID ==
[~2022-12-18] VITALS: Ht 172.7 cm; Wt 125.0 kg
[~2022-12-18 18:57] MED LIST changes: +MELA5TAB21 PO; +MELA5TAB40 PO; +NALT50TA PO; +NALT50TA6 PO; +OMEG-135 PO; +OMEG-48 PO; +PALI117D IM; +TRIH2TAB3 PO
[2022-12-18] MEDS ORDERED: ZOLPIDEM TARTRATE 10 MG TABLET PO PRN (21:00)
[2022-12-18] MEDS ORDERED: HALOPERIDOL 5 MG TABLET PO PRN (21:00)
[2022-12-18] MEDS ORDERED: LORazepam 2 MG TABLET PO PRN (21:00)
[2022-12-18 21:01] LABS: BASOPHILS % (AUTO) 0.4 % (0.0-2.0); EOSINOPHILS % (AUTO) 4.3 % (1.0-6.0); HEMATOCRIT 43.9 % (41-53); HEMOGLOBIN 14.9 g/dL (13.5-17.5); LYMPHOCYTES # (AUTO) 1.2 K/uL (1.0-4.8); LYMPHOCYTES % (AUTO) 15.5 % (22.0-44.0); MEAN CORPUSCULAR HEMOGLOBIN 28.6 pg (26.0-34.0); MEAN CORPUSCULAR VOLUME 84 fL (80-100); MONOCYTES # (AUTO) 0.6 K/uL (0.1-1.0); MONOCYTES % (AUTO) 7.8 % (2.0-9.0); NEUTROPHILS # (AUTO) 5.6 K/uL (1.8-7.7); PLATELET COUNT (AUTO) 523 K/uL (150-450); RED BLOOD CELL COUNT(AUTO) 5.21 MIL/uL (4.50-5.90); RED CELL DISTRIBUTION WIDTH 14.6 % (11.5-14.5)
[2022-12-18 21:13] LABS: ANION GAP 11 mmol/L (8-16); CALCIUM, TOTAL 9.3 mg/dL (8.8-10.5); CARBON DIOXIDE 28 mmol/L (22-29); CHLORIDE 100 mmol/L (98-107); CREATININE 1.17 mg/dL (0.60-1.30); GLOMERULAR FILTR. RATE CALC > 60 mL/min (>60); GLUCOSE,RANDOM 118 mg/dL (70-110); POTASSIUM 3.8 mmol/L (3.5-5.1); SODIUM SERUM 139 mmol/L (136-145)
[2022-12-18] MEDS ORDERED: LORazepam 2 MG TABLET PO ONE (21:15)
[2022-12-18] MEDS ORDERED: DiphenhydrAMINE HCL 25 MG CAPSULE PO ONE (21:15)
[2022-12-18 21:19] LABS: ALANINE AMINOTRANSFERASE 51 U/L (12-78); ALBUMIN 4.2 g/dL (3.4-5.0); ALKALINE PHOSPHATASE 103 U/L (46-116); ASPARTATE AMINOTRANSFERASE 33 U/L (15-37); BILIRUBIN,TOTAL 0.5 mg/dL (0.1-1.0); TOTAL PROTEIN, SERUM 7.6 g/dL (6.4-8.2)
[2022-12-18 22:53] LABS: COVID AG,FIA SOURCE NASOPHARYNGEAL
[2022-12-18 23:02] LABS: APPEARANCE,URINE HAZY (CLEAR); BILIRUBIN,URINE NEGATIVE (NEGATIVE); GLUCOSE, URINE (UA) NEGATIVE (NEGATIVE); KETONES,URINE 40-60 mg/dL (NEGATIVE); LEUKOCYTE ESTERASE ,URINE NEGATIVE (NEGATIVE); NITRATE,URINE NEGATIVE (NEGATIVE); OCCULT BLOOD,URINE NEGATIVE (NEGATIVE); PROTEIN,URINE 30-70 mg/dL (NEGATIVE); SPECIFIC GRAVITIY, URINE 1.031 (1.003-1.030); UROBILINOGEN,URINE <=1.0 mg/dL (<=1.0)
[2022-12-18 23:08] LABS: AMPHET/METH SCREEN,URINE NEGATIVE (NEGATIVE); BARBITURATE SCREEN, URINE NEGATIVE (NEGATIVE); BENZODIAZEPINES SCREEN,URINE NEGATIVE (NEGATIVE); CANNABINOID SCREEN,URINE NEGATIVE (NEGATIVE); COCAINE SCREEN,URINE NEGATIVE (NEGATIVE); METHADONE SCREEN, URINE NEGATIVE (NEGATIVE); OPIATE SCREEN,URINE NEGATIVE (NEGATIVE); PHENCYCLIDINE SCREEN,URINE NEGATIVE (NEGATIVE)
[2022-12-19 00:12] VITALS: BP 130/82; PULSE 76; RESP 18; TEMP 98
[2022-12-19] MEDS ORDERED: DOCUSATE SODIUM 100 MG CAPSULE PO PRN (00:45)
[2022-12-19] MEDS ORDERED: MAGNESIUM HYDROXIDE SUSPENSION 30 ML UDCUP PO PRN (00:45)
[2022-12-19] MEDS ORDERED: MAG HYDROX/AL HYDROX/SIMETH ES 30 ML SUSPENSION UDCUP PO PRN (00:45)
[2022-12-19] MEDS ORDERED: IBUPROFEN 400 MG TABLET PO PRN (00:45)
[2022-12-19] MEDS ORDERED: ALBUTEROL SULFATE HFA 90 MCG/PUFF 8 GM INHALER IH PRN (00:45)
[2022-12-19] MEDS ORDERED: ONDANSETRON HCL 4 MG TABLET PO PRN (00:45)
[2022-12-19] MEDS ORDERED: ACETAMINOPHEN 325 MG TABLET PO PRN (00:45)
[2022-12-19] MEDS ORDERED: NICOTINE 14 MG/24 HOUR PATCH TD PRN (00:45)
[2022-12-19] MEDS ORDERED: GuaiFENesin/D-METHORPHAN [SUGAR-FREE] 200-20MG/10 ML SYRUP UDCUP PO PRN (00:45)
[2022-12-19] MEDS ORDERED: PETROLATUM,WHITE 28 GM JELLY TP PRN (00:45)
[2022-12-19] MEDS ORDERED: CloNIDine HCL 0.1 MG TABLET PO PRN (00:45)
[2022-12-19] MEDS ORDERED: LOPERAMIDE HCL 2 MG CAPSULE PO PRN (00:45)
[2022-12-19 10:26] VITALS: BP 134/82; PULSE 75; RESP 17; TEMP 97.2
[2022-12-19] MEDS: NALTREXONE HCL 50 MG TABLET PO SCH (11:58)
[2022-12-19] MEDS: TRIHEXYPHENIDYL HCL 2 MG TABLET PO SCH ×2 (11:58→18:18)
[2022-12-19] MEDS: ARIPiprazole 10 MG TABLET PO SCH (11:59)
[2022-12-19] MEDS: MELATONIN 5 MG TABLET PO SCH (20:05)
[2022-12-19 20:40] VITALS: BP 129/79; PULSE 71; RESP 18; TEMP 97.7
[2022-12-20 08:05] VITALS: BP 108/67; PULSE 64; RESP 16; TEMP 97.7
[2022-12-20 08:44] LABS: BASOPHILS % (AUTO) 0.5 % (0.0-2.0); EOSINOPHILS % (AUTO) 6.4 % (1.0-6.0); HEMATOCRIT 46.1 % (41-53); HEMOGLOBIN 15.6 g/dL (13.5-17.5); LYMPHOCYTES # (AUTO) 1.6 K/uL (1.0-4.8); LYMPHOCYTES % (AUTO) 19.7 % (22.0-44.0); MEAN CORPUSCULAR HEMOGLOBIN 28.4 pg (26.0-34.0); MEAN CORPUSCULAR HGB CONC 33.8 G/dL (31.0-37.0); MEAN CORPUSCULAR VOLUME 84 fL (80-100); MONOCYTES # (AUTO) 0.6 K/uL (0.1-1.0); MONOCYTES % (AUTO) 7.3 % (2.0-9.0); NEUTROPHILS # (AUTO) 5.5 K/uL (1.8-7.7); NEUTROPHILS % (AUTO) 66.1 % (40.0-70.0); PLATELET COUNT (AUTO) 484 K/uL (150-450); RED BLOOD CELL COUNT(AUTO) 5.47 MIL/uL (4.50-5.90); RED CELL DISTRIBUTION WIDTH 14.8 % (11.5-14.5)
[2022-12-20 08:56] LABS: HEMOGLOBIN A1C 5.4 % (3.8-5.6)
[2022-12-20 09:07] LABS: ALANINE AMINOTRANSFERASE 52 U/L (12-78); ALBUMIN 3.9 g/dL (3.4-5.0); ALKALINE PHOSPHATASE 104 U/L (46-116); ANION GAP 9 mmol/L (8-16); ASPARTATE AMINOTRANSFERASE 23 U/L (15-37); BILIRUBIN,TOTAL 0.4 mg/dL (0.1-1.0); CALCIUM, TOTAL 9.1 mg/dL (8.8-10.5); CARBON DIOXIDE 29 mmol/L (22-29); CHLORIDE 101 mmol/L (98-107); CHOL/HDL RATIO 4.7 (4.2-7.3); CHOLESTEROL 128 mg/dL (131-200); CREATININE 1.15 mg/dL (0.60-1.30); GLOMERULAR FILTR. RATE CALC > 60 mL/min (>60); GLUCOSE,RANDOM 107 mg/dL (70-110); HDL CHOLESTEROL 27 mg/dL (40-60); LDL CHOL (CALC.) 85 mg/dL (0-130); SODIUM SERUM 139 mmol/L (136-145); THYROID STIMULATING HORMONE 0.96 uIU/mL (0.36-3.74); TOTAL PROTEIN, SERUM 7.4 g/dL (6.4-8.2); TRIGLYCERIDES 79 mg/dL (15-150)
[2022-12-20] MEDS: ARIPiprazole 10 MG TABLET PO SCH (09:44)
[2022-12-20] MEDS: NALTREXONE HCL 50 MG TABLET PO SCH (09:44)
[2022-12-20] MEDS: TRIHEXYPHENIDYL HCL 2 MG TABLET PO SCH ×3 (09:44→17:20)
[2022-12-20] MEDS: MELATONIN 5 MG TABLET PO SCH (20:23)
[2022-12-20 20:46] VITALS: BP 128/74; PULSE 76; RESP 18; TEMP 97.5
[2022-12-21 08:19] VITALS: BP 117/58; PULSE 69; RESP 18; TEMP 97.6
[2022-12-21] MEDS: TRIHEXYPHENIDYL HCL 2 MG TABLET PO SCH ×2 (09:08→14:12)
[2022-12-21] MEDS: ARIPiprazole 10 MG TABLET PO SCH (09:08)
[2022-12-21] MEDS: NALTREXONE HCL 50 MG TABLET PO SCH (09:08)
== END 2022-12-21 16:10 | disposition home or self-care (01) | DRG 750 ==
LOC: EMS 19:13 → 3EC 21:25
PROVIDERS: ADMIT Psychiatry & Neurology Child & Adolescent Psychiatry; ATTEND Psychiatry & Neurology Child & Adolescent Psychiatry
DX: F25.0 Schizoaffective disorder, bipolar type (principal); E78.5 Hyperlipidemia, unspecified; F41.9 Anxiety disorder, unspecified; G47.00 Insomnia, unspecified; Z20.822 Contact with and (suspected) exposure to COVID-19; Z79.899 Other long term (current) drug therapy; Z88.8 Allergy status to other drugs, medicaments and biological substances; Z59.00 Homelessness unspecified
CPT/HCPCS: 80053; 80061; 80307; 81003; 83036; 84443; 85025; 99285; G0480; Q9967